=== PATIENT | male | born 1970 | race Caucasian/White ===

== ENCOUNTER 2025-09-13 11:40 | Inpatient (IN) | payer BC ==
[~2025-09-13] VITALS: Ht 172.7 cm; Wt 108.3 kg
--- NOTE | 2025-09-13 12:09 | Physician Documentation ---
History of Present Illness ~ General Chief Complaint: Abnormal Lab(s) Stated Complaint: ABNORMAL LABS Time Seen by MD: 12:17 History of Present Illness Initial Comments The patient is a very pleasant 54-year-old gentleman that presents to the emergency department for evaluation of hypertension and abnormal labs. Patient reports that he was seen by his primary care provider couple of weeks ago the primary care provider ordered laboratory diagnostics on the . Patient presented on the and had the labs done. Laboratory sent the patient the results but they have not been reviewed by the patient's primary care provider as they have been out of the office sick. Patient reports that there are several abnormalities that he is concerned about. Patient reports that he has hypothyroidism at baseline and takes Synthroid currently patient also takes antihypertensives. He reports that he was recently switched to Norvasc from his previous medication. Patient reports that he takes Norvasc 5 mg but it is samy rly not covering his hypertension as he is greater than 200 here in the triage room. Patient denies any other symptoms other than persistent shortness of breath with exertion and orthopnea. Patient denies any chest pain chest pressure radiating chest pain headache vision changes fever chills nausea vomiting or diarrhea at this time. he is taking levothyroxine 25 mcg once daily, he c/o severe constipation, increased weight, cold intolerane and difficulty in getting up from chair for the past 4 months, along with exertional dyspnea Medication Reconciliation Allergies: Coded Allergies: No Known Allergies (Unverified , 09/13/25) Scheduled Amlodipine Besylate (Norvasc), 1 TAB PO DAILY, (Reported) Atorvastatin Calcium (Atorvastatin Calcium), 40 MG PO DAILY Bupropion Hcl (Wellbutrin), 1 TAB PO DAILY, (Reported) Chlorthalidone (Chlorthalidone), 1 TAB PO DAILY Gabapentin (Gabapentin), 1 CAP PO HS, (Reported) Glipizide (Glipizide Er), 1 TAB PO DAILY Levothyroxine Sodium (Levothyroxine Sodium), 2 TAB PO DAILY Lisinopril (Lisinopril), 2 TAB PO DAILY Gooding Carbonate (Gooding Carbonate), 3 CAP PO HS, (Reported) Discontinued Medications Gooding Carbonate (lithium carbonate tablet), 3 TAB PO DAILY, (Reported) Discontinued Reason: wrong med Propranolol Hcl (Propranolol Hcl), 2 TAB PO BID, (Reported) Discontinued Reason: wrong med Propranolol Hcl* (Inderal*), 1 TAB PO BID, (Reported) Past Medical History Other Past Medical History: HTN T2DM Hypothyroidism bipolar disorder Alcohol Use: Occasionally Drug Use: none Lives with: Alone Lives In: Home Review of Systems All Other Systems at this time: Reviewed and Negative Physical Exam Physical Exam Vital Signs: Temperature: 97.8, Source: Oral, Heart Rate: 94, Respiratory Rate: 18, BP: 202/124, Pulse Oximetry: 99, Weight: 108.300 Oxygen Flow Rate: 0 General Appearance: alert, no apparent distress General Appearance pleasant, and obese Respiratory: lungs clear, normal breath sounds Chest: no accessory muscle use Cardiovascular: regular rate, rhythm Cardiovascular S1, S2 heard Neurologic: oriented x4 Motor / Sensory: no motor deficit, no sensory deficit 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 Progress Results/Orders Results/Orders Orders - VIKTORIA GIVENS MD Chest,Single View (09/13/25 12:15) Monitor (09/13/25 12:15) Saline Lock (09/13/25 12:15) Oxygen (09/13/25 12:15) Hs Troponin I W Calculations (09/13/25 14:15) Hs Troponin I W Calculations (09/13/25 15:15) Completed Orders - VIKTORIA GIVENS MD Chest,Single View (09/13/25 12:15) Cbc/Diff (09/13/25 12:15) BMP (09/13/25 12:15) PBNP (09/13/25 12:15) Electrocardiogram (09/13/25 12:15) Hs Troponin I W Calculations (09/13/25 12:15) Free T4 (09/13/25 12:53) Hgb A1c (09/13/25 12:53) MG (09/13/25 12:53) Vital Signs 09/13/25 09/13/25 09/13/25 11:57 12:49 12:53 Temp 97.8 Pulse 94 76 Resp 18 14 B/P (MAP) 202/124 191/112 (138) Pulse Ox 99 96 O2 Flow Rate 0 0 Laboratory Tests Test 09/13/25 12:53 09/13/25 13:16 White Blood Count 8.0 Red Blood Count 4.46 L Hemoglobin 13.2 L Hematocrit 38.7 L Mean Corpuscular Volume 86.7 Mean Corpuscular Hemoglobin 29.6 Mean Corpuscular Hemoglobin Concent 34.1 Red Cell Distribution Width 14.1 Platelet Count 304 Mean Platelet Volume 7.8 Neutrophils (%) (Auto) 69.9 Lymphocytes (%) (Auto) 19.3 L Monocytes (%) (Auto) 5.8 Eosinophils (%) (Auto) 3.1 Basophils (%) (Auto) 1.9 H Neutrophils # (Auto) 5.6 Lymphocytes # (Auto) 1.5 Monocytes # (Auto) 0.5 Eosinophils # (Auto) 0.3 Basophils # (Auto) 0.2 CBC Comment Sodium Level 136 Potassium Level 4.0 Chloride Level 101 Carbon Dioxide Level 26.1 Anion Gap 9 Blood Urea Nitrogen 15 Creatinine 1.50 H Estimated GFR/1.73 m2 49 BUN/Creatinine Ratio 10.0 Glucose Level 248 H Hemoglobin A1c 7.8 H Calcium Level 9.7 Magnesium Level 2.1 Total Creatine Kinase 245 Troponin I High Sensitivity 18 Pro-B-Type Natriuretic Peptide 228 H Albumin 4.2 Thyroid Stimulating Hormone (TSH) 157.75 H Free Thyroxine < 0.20 L Chemistry Comments Urine Specimen Description Non-specified Urine Color Yellow Urine Clarity Slightly cloudy Urine pH 6.0 Urine Specific [place] 1.025 Urine Protein Trace Urine Glucose (UA) 100 H Urine Ketones Negative Urine Occult Blood Trace-intact Urine Nitrite Negative Urine Bilirubin Negative Urine Urobilinogen 0.2 Urine Leukocyte Esterase Negative Urine RBC 0-2 Urine WBC 0-4 Urine Squamous Epithelial Cells Few Urine Calcium Oxalate Crystals 1+ Urine Bacteria Few Urine Hyaline Casts 0-3 Urine Mucus None seen Urine Culture Indicated Not ind Volume Urine Centrifuged 10 ml Urine Comment Medical Decision Making Additional information obtaine: old records Findings 54 year old male with HTN, Hypothyroidism, obesity, T2DM, bipolar disorder on lithium came to the ER after he was found to have abn labs TSH >150, with decreased T3 and T4 Ca-10.4 and cr- 1.43 patient doesnt have signs of adrenal insufficiency will do CK to look for myopathy EKG- sinus rythm, 76/min,no ST-T changes will give iv levothyroxine 100 mcg once patient needs to be admitted for eval of causes of uncontrolled hypothyroidism, could be 2/2 lithium interactions, sub- therapeutic dosing Differential Diagnosis uncontrolled hypothyroidism Departure Time of Disposition: 14:06 Admitted to Inpatient Unit: yes, to hospitalist (sign out given to Dr. Tubbs team) Impression: Primary Impression: Hypothyroidism Condition: Guarded Referrals: NO PRIMARY CARE PROVIDER (PCP) Prescriptions Chlorthalidone (Chlorthalidone) 25 Mg Tablet 1 TAB PO DAILY for 30 Days, #30 TAB 0 Refills Prov: MATICHUCKCORBIN [facility] 09/14/25 Lisinopril (Lisinopril) 20 Mg Tablet 2 TAB PO DAILY for 30 Days, #60 TAB [facility]/14[facility]25 Atorvastatin Calcium (Atorvastatin Calcium) 20 Mg Tablet 40 MG PO DAILY for 30 Days, #30 TAB Prov: [facility] 09/14/25 Glipizide (Glipizide Er) 5 Mg Tab.er2.24 1 TAB PO DAILY for 30 Days, #30 TAB 0 Refills Prov: MATIALEKFREDDIE [facility] 09/14/25 Levothyroxine Sodium (Levothyroxine Sodium) 25 Mcg Tablet 2 TAB PO DAILY for 30 Days, #60 TAB [facility] 09/14/25 Additional Comment Seen with PA/AUTOMOTIVE REFINISH TECHNICIAN The patient was seen with the medical records field technician. The patient presents with symptoms consistent with significant hypothyroidism. The patient is chart has been reviewed I have reviewed resident's note and with the residents assessment and plan. The patient has been independently examined. The patient will be admitted to the hospitalist service. Prior hospitalizations has been reviewed. The patient's pulse oximetry was interpreted as normal and adequate Signature Scribe Signature: . Attestation: findings, assessment, plan and dispo d/w WINIFRED Martins MDP Sep 13, 2025 12:09 FINESSE MENG, RES Sep 13, 2025 13:36 VIKTORIA GIVENS MD Sep 16, 2025 08:17
--- NOTE | 2025-09-13 12:19 | ELECTROCARDIOGRAPH REPORT ---
[facility] Test Date: 2025-09-13 Test Time: 12:15:47 Pat Name: ANITA TYLER Department: EMERGENCY ROOM Room: Gender: M Facing Baster Jumpbasting: OLENA : 1970 Requested By: VIKTORIA GIVENS Order Number: [id number] Reading MD: Measurements Intervals Lyman Rate: 76 P: 35 SD: 158 QRS: 15 QRSD: 97 T: 197 QT: 366 QTc: 412 Interpretive Statements Sinus rhythm Borderline repolarization abnormality Baseline wander in lead(s) V2 Please click the below link to view image of tracing.
--- NOTE | 2025-09-13 12:41 | RADIOLOGY REPORT ---
EXAM: DI CHEST,SINGLE VIEW HISTORY: CP COMPARISON: None TECHNIQUE: Portable upright AP view of the chest was performed. FINDINGS: No pneumothorax, consolidative infiltrates, or pulmonary edema. The heart is not enlarged. There is an old left mid clavicular fracture. IMPRESSION: No acute intrathoracic process.
[2025-09-13 13:05] LABS: MEAN PLATELET VOLUME 7.8 FL (7.4-10.4); RED CELL DISTRIBUTION WIDTH 14.1 % (11.5-14.5)
[2025-09-13 13:32] LABS: CREATININE 1.50 MG/DL (0.60-1.10); PRO BRAIN NATRIURETIC PEPTIDE 228 PG/ML (0-125); TOTAL CARBON DIOXIDE 26.1 MMOL/L (24-32); eCRCL 54 ML/MIN; eGFR 49 ML/MIN
[2025-09-13] MEDS: LEVOTHYROXINE SODIUM 100 MCG/5 ML injection IV ONE (13:45)
[2025-09-13] MEDS ORDERED: potassium Cl 40MEQ/1/2NS 520ml 520 ML IV PRN (14:15)
[2025-09-13] MEDS ORDERED: magnesium sulf-water 4G/100mL 100 ML IV PRN (14:15)
[2025-09-13] MEDS ORDERED: potassium Cl 20 mEq SR tablet PO PRN ×2 (14:15)
[2025-09-13] MEDS ORDERED: magnesium Cl slow-release 64mg tablet PO PRN (14:15)
[2025-09-13] MEDS ORDERED: ondansetron/PF 4mg/2ml inj IV PRN (14:15)
[2025-09-13] MEDS ORDERED: magnesium hydroxide 30ml (MOM) UD suspension PO PRN (14:15)
[2025-09-13] MEDS ORDERED: bisacodyl 10mg suppository rectal RC PRN (14:15)
[2025-09-13] MEDS ORDERED: mag hydrox/Alum hydrox/simeth 30ml oral suspension PO PRN (14:15)
[2025-09-13] MEDS ORDERED: magnesium sulf-water 2g/50mL 50 ML IV PRN (14:15)
[2025-09-13] MEDS ORDERED: HYDROmorphone/PF 0.2 MG/ML SYRINGE IV PRN (14:15)
[2025-09-13] MEDS: levoTHYROXINE 100mcg tablet PO SCH (14:55)
[2025-09-13] MEDS ORDERED: LITH300T3 PO (15:03)
[2025-09-13] MEDS ORDERED: PROP20TA6 PO (15:03)
[2025-09-13] MEDS ORDERED: LEVO25TA7 PO (15:03)
[2025-09-13] MEDS ORDERED: BUPR100T13 PO (15:03)
[2025-09-13] MEDS ORDERED: GABA-530 PO (15:03)
[2025-09-13] MEDS ORDERED: AMLO5TAB5 PO (15:04)
[2025-09-13 15:32] LABS: LEUKOCYTE ESTERASE ,URINE NEGATIVE (Neg); NITRITES, URINE NEGATIVE (Neg); OCCULT BLOOD,URINE TRACE-INTACT (Neg)
[2025-09-13 15:35] LABS: UA COLLECTION TYPE NON-SPECIFIED
[2025-09-13 15:38] LABS: CAL OXALATE CRYSTALS 1+ /HPF (NEGATIVE); HYALINE CASTS 0-3 /LPF (NEGATIVE); MUCUS STRANDS NONE SEEN /LPF (Neg); SQUAMOUS EPITHELIAL CELL,UR FEW /LPF (FEW)
[2025-09-13] MEDS ORDERED: LITH300C PO (16:49)
[2025-09-13] MEDS ORDERED: PROP40TA72 PO (16:50)
[2025-09-13 17:18] LABS: APTT 26 SECONDS (22-32); INR 1.0 INR
[2025-09-13] MEDS ORDERED: dextrose 50%-water 50ml dispensing syringe IV PRN ×2 (18:25)
[2025-09-13] MEDS ORDERED: DEXTROSE 15 GM of carb/4 tabs (each vial/BOTTLE has 4 tablets) PO PRN ×2 (18:25)
[2025-09-13] MEDS ORDERED: glucagon, human recombinant 1mg kit SUBCUT PRN (18:25)
--- NOTE | 2025-09-13 18:30 | HISTORY AND PHYSICAL-Residence ---
History & Physical Providers to CC Resident Creating Document: ANAID DOSS, RES ~ History of Present Illness Reason for Admit\Complaint: Referred by PCP History of Present Illness This is a 54-year-old male with a history of type 2 diabetes mellitus, bipolar disorder, anxiety, depression presents to the ER after being referred by his PCP for abnormally high TSH. Patient endorses that his symptoms started four months ago which included severe constipation, hot flashes, burning pain in his muscles, dry mouth, insomnia, occasional chest pain and shortness of breath with exertion. His symptoms worsened one month ago and went to the ER where EKG and chest x-ray were normal and was discharged home. He also states that he gained 30 lb in the last four months. He later followed up with PCP who ordered some lab work and a mentioned that the TSH was very high redirected him to go to the ER. Patient takes multiple medications for anxiety, depression including metoprolol, Wellbutrin and lithium for bipolar disorder. Patient has type 2 diabetes but does not take any medication and follows dietary modification. Allergies: Coded Allergies: No Known Allergies (Unverified , 09/13/25) Home Medications Home Medications Active Reported Inderal* (Propranolol HCl) 40 Mg Tablet 1 Tab PO BID [place] Carbonate 300 Mg Capsule 3 Cap PO HS 30 Days Norvasc (Amlodipine Besylate) 5 Mg Tablet 1 Tab PO DAILY 30 Days Wellbutrin (Bupropion Hcl) 100 Mg Tablet 1 Tab PO DAILY 30 Days Levothyroxine Sodium 25 Mcg Tablet 1 Tab PO DAILY Gabapentin 100 Mg Capsule 1 Cap PO HS Past Medical History Past Medical History Type 2 diabetes mellitus, bipolar, anxiety, depression Past Surgical History Surgical History Comment Left knee surgery Past Social History Social History Comment Smokes about half pack per day for the last 40 years, denies any alcohol or drug use Alcohol Use: Occasionally Drug Use: None Lives with: Alone Lives In: Home ROS All Other Systems: Reviewed and Negative ROS Constitutional: Positive for Weight gain No fever, chills, dizziness, weakness Eyes: No pain, erythema, discharge, blurring of vision ENT: No sore throat, epistaxis, tinnitus Cardiovascular: Positive for chest pain. No palpitations, syncope, lower extremity edema, paroxysmal nocturnal dyspnea Respiratory: Positive for shortness of breath. No hemoptysis Gastrointestinal: Positive for constipation Normal appetite. No nausea, vomiting, diarrhea, hematemesis, abdominal pain, bloating, melena or fresh blood Genitourinary: No frequency, urgency, nocturia, hematuria or dysuria Musculoskeletal: Myalgias positive No arthralgias Integumentary: Dry skin. No change in skin, hair, nails. No swelling, bruising, abrasions Neurologic: No headache, neck pain, numbness or tingling of the extremities, weakness Psychiatric: No delusions, depression, loss of interest in normal activity or change in sleep pattern, hallucinations, suicidal ideations Endocrine: Positive for fatigue, weakness, change in appetite, heat or cold intolerance, sweating, dry skin Hematological: No bleeding, petechiae, bruising Allergies: No asthma or urticaria Exam Vitals: Vital Signs Date Time Temp Pulse Resp B/P (MAP) Pulse Ox O2 Delivery O2 Flow Rate FiO2 09/13/25 16:35 96 16 170/110 (130) 99 0 09/13/25 11:57 97.8 General: General: Awake and Alert, no acute distress. HEENT: Conjunctiva pink, Sclera clear, Mucus Membranes moist Neck: Supple without masses and tenderness. Resp: Unlabored. Equal breath sounds bilaterally. Heart: Regular rhythm, normal S1 and S2, no rub, murmur or gallop, muffled heart sounds. Abdomen: Soft and non tender no organomegaly. Normal bowel sounds x4 quadrant normoactive. No guarding or rigidity. Extremities: Normal ROM, no swelling, nontender. No cyanosis,clubbing or edema. BANK CLERK: No gross motor or sensory abnormalities. 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 Warm and Dry. Diagnostic Data Last Recorded Lab Results: 09/13/25 1253 09/13/25 1253 Diagnostic Data: Laboratory Tests Test 09/13/25 16:21 Prothrombin Time 10.3 SECONDS (9.0-12.0) INR International Normalized Ratio 1.0 INR Activated Partial Thromboplast Time 26 SECONDS (22-32) Coagulation Comments Advance Care Planning Advanced Care plannin - 30 Minutes (I spent a total of 17 minutes on reviewing various resuscitative measures/ ACP with the patient at the time of admission. 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 However patient does not have any acute symptoms Patient takes 25 mcg of levothyroxine daily (subtherapeutic dose) Patient received one dose of IV levothyroxine 100 mcg in the ER. Started on p.o. levothyroxine 100 mcg daily scheduled. No signs of adrenal crisis as of now including bradycardia, hypotension, hypoglycemia, not received any steroids in ER. Follow up with the ACTH and a.m. cortisol. CK level is 245 WNL EKG shows no signs of bradycardia. Hypertensive urgency Blood pressure at presentation was 200/124 mmHg. Restarted home medication amlodipine 5 mg p.o. daily scheduled and propranolol 40 mg p.o. b.i.d. which he takes for anxiety Severe constipation secondary to hypothyroidism Started on rectal suppository daily p.r.n., MiraLax daily scheduled, docusate b.i.d. scheduled, milk of Mag PRN. Monitor daily bowel movements MIRA secondary to renal tubular stasis Creatinine 1.5, unknown baseline. Started on IV fluids NS at the rate of 100 mL/hour Type 2 diabetes mellitus A1c 7.8. Blood sugar high at 248. Started on hyperglycemia protocol with 20 units insulin and medium dose supplemental insulin History of bipolar disorder Serum lithium level 0.3 (below therapeutic range). Restarted home medication lithium daily scheduled. [place] less likely to be causing severe hypothyroidism. Mild hypercalcemia Calcium 9.7, continue monitoring Code Status: Full code DVT Prophylaxis: Heparin Analgesia/Sedation: Tylenol PRN Lines/Tubes: PIV Gi Prophylaxis: None Nutrition: Carb controlled diet PT: Yes Prognosis: Guarded Disposition: Admit to surgical floor. Anaid Graham MD Internal Medicine Resident PGY-2 Date of Service: Sep 13, 2025 Billing Provider: ALEXANDER THOMPSON MD Common Visit Codes: 61710-[id number] INP/OBS CARE (HIGH) Secondary Visit Codes: [id number] CARE PLAN 30 MINUTES ANAID DOSS, RES Sep 13, 2025 18:30 ALEXANDER THOMPSON MD Sep 15, 2025 06:47
[2025-09-13] MEDS: K and/or MAG REPLACEMENT MC SCH (20:00)
[2025-09-13] MEDS: polyethylene glycol 3350 17gm powd pack PO SCH (20:27)
[2025-09-13] MEDS: normal saline 1000ml 1,000 ML IV SCH (20:27)
[2025-09-13] MEDS: propranolol 10mg tablet PO SCH (20:29)
[2025-09-13] MEDS: docusate sod 100mg capsule PO SCH (20:31)
[2025-09-13] MEDS: heparin, porcine 5000 units/ml vial SQ SCH (20:32)
[2025-09-13] MEDS: insulin glargine (Lantus) pen - multi-dose SQ SCH (20:36)
[2025-09-13] MEDS: INSULIN LISPRO 100 UNIT/ML INSULN.PEN MULTI-DOSE SQ SCH (20:38)
[2025-09-13 22:15] VITALS: BP 161/93; PULSE 57; RESP 16; TEMP 98; O2SAT 98
[2025-09-14] MEDS: HYDROcodone/acetaminophen 5mg/325mg tablet PO PRN (00:30)
[2025-09-14 02:00] VITALS: BP 159/62; PULSE 58; RESP 16; TEMP 96.5; O2SAT 98
[2025-09-14 06:00] VITALS: BP 160/93; PULSE 62; RESP 16; TEMP 97.3; O2SAT 95
[2025-09-14] MEDS: levoTHYROXINE 75mcg tablet PO ONE (10:26)
[2025-09-14 11:00] VITALS: BP 165/97; PULSE 51; RESP 15; TEMP 97.9; O2SAT 99
[2025-09-14 11:37] LABS: MEAN PLATELET VOLUME 7.7 FL (7.4-10.4); RED CELL DISTRIBUTION WIDTH 14.4 % (11.5-14.5)
--- NOTE | 2025-09-14 11:53 | RADIOLOGY REPORT ---
CT brain without contrast CLINICAL INDICATION: left hand numbness FINDINGS: The study was performed in a multidetector scanner. This study performed taking axial images from the skull base up to the vertex. Both brain and bone windows are photographed. Dose lowering techniques have been used including automated exposure control and adjustment of mA and/or KV according to patient size. Normal and symmetrical shape and density of brain parenchyma above and below the tentorium is seen. There is no mass, midline shift or hydrocephalus. No intra/extra-axial collections demonstrated. There is no intracranial hemorrhage. The calvarium is intact. IMPRESSION: 1. Normal brain and skull. Computed Tomographic Radiation Dosimetry Report: Total CTDI vol = 63 mGy Total DLP = 1186 mGy-cm All CT scans at this medical facility are performed using dose modulation techniques as appropriate to a performed exam including the following: Automated exposure control was utilized; adjustment of the MA and/or KvP according to patient size; and use of iterative reconstruction technique.
[2025-09-14 11:55] LABS: CHOL/HDL RATIO 6.5 (0.00-4.99); CREATININE 1.27 MG/DL (0.60-1.10); LDL CHOLESTEROL 172 MG/DL (50-100); TOTAL CARBON DIOXIDE 29.6 MMOL/L (24-32); eCRCL 64 ML/MIN; eGFR 59 ML/MIN
[2025-09-14] MEDS ORDERED: GLIP-297 PO (13:22)
[2025-09-14] MEDS ORDERED: ATOR20TA66 PO (13:22)
[2025-09-14] MEDS ORDERED: LEVO25TA7 PO (13:22)
[2025-09-14] MEDS ORDERED: CHLO25TA10 PO (13:36)
[2025-09-14] MEDS ORDERED: LISI20TA28 PO (13:36)
[2025-09-14 13:38] VITALS: BP 169/94; PULSE 54
--- NOTE | 2025-09-14 14:28 | DISCHARGE SUMMARY-Residence ---
Discharge Summary Providers to CC Resident Creating Document: GUNNAR MORALES RES ~ Discharge Summary Admission Diagnosis: severe hypothyroidism Admission Diagnosis Comment: Severe hypothyroidism, not in myxedema coma Myopathy Hypertensive urgency Severe constipation secondary to hypothyroidism MIRA secondary to renal tubular stasis Type 2 diabetes mellitus History of bipolar disorder Mild hypercalcemia Hospital Course DATE OF ADMISSION: 09/13/25 DATE OF DISCHARGE: 09/14/25 Imaging- Chest x-ray No acute intrathoracic process Head CT- Normal brain and skull. Discharge Diagnosis\Comment: Severe hypothyroidism, not in myxedema coma Myopathy Hypertensive urgency resolved Severe constipation secondary to hypothyroidism MIRA secondary to renal tubular stasis Type 2 diabetes mellitus History of bipolar disorder Mild hypercalcemia Operations\Procedures: None Consultants: None Complications: None Condition on DC: Stable New Medications: Atorvastatin Calcium (Atorvastatin Calcium) 20 Mg Tablet 40 MG PO DAILY for 30 Days, #30 TAB Chlorthalidone (Chlorthalidone) 25 Mg Tablet 1 TAB PO DAILY for 30 Days, #30 TAB 0 Refills Glipizide (Glipizide Er) 5 Mg Tab.er2.24 1 TAB PO DAILY for 30 Days, #30 TAB 0 Refills Lisinopril (Lisinopril) 20 Mg Tablet 2 TAB PO DAILY for 30 Days, #60 TAB Changed Medications: Levothyroxine Sodium (Levothyroxine Sodium) 25 Mcg Tablet 2 TAB PO DAILY for 30 Days, #60 TAB (Changed from: 1 TAB) Continued Medications: Amlodipine Besylate (Norvasc) 5 Mg Tablet 1 TAB PO DAILY for 30 Days, #30 TAB 0 Refills Bupropion Hcl (Wellbutrin) 100 Mg Tablet 1 TAB PO DAILY for 30 Days, #60 TAB 0 Refills Gabapentin (Gabapentin) 100 Mg Capsule 1 CAP PO HS [place] Carbonate ([place] Carbonate) 300 Mg Capsule 3 CAP PO HS for 30 Days, #60 CAP 0 Refills Discontinued Medications: Propranolol Hcl* (Inderal*) 40 Mg Tablet 1 TAB PO BID, TAB Discharge Summary: This is a 54-year-old male with a history of type 2 diabetes mellitus, bipolar disorder, anxiety, depression presents to the ER after being referred by his PCP for abnormally high TSH. Patient endorses that his symptoms started four months ago which included severe constipation, hot flashes, burning pain in his muscles, dry mouth, insomnia, occasional chest pain and shortness of breath with exertion. His symptoms worsened one month ago and went to the ER where EKG and chest x-ray were normal and was discharged home. He also states that he gained 30 lb in the last four months. He later followed up with PCP who ordered some lab work and a mentioned that the TSH was very high redirected him to go to the ER. Patient takes multiple medications for anxiety, depression including metoprolol, Wellbutrin and lithium for bipolar disorder. Patient has type 2 diabetes but does not take any medication and follows dietary modification. Course during the hospital stay- Patient's TSH was greater than 150 with severely low T4. However patient did not any acute symptoms. The above lab values were due to medication noncompliance by the patient. Patient was not taking his levothyroxine regularly on a daily basis. However during the course of his stay in the hospital, his condition improved significantly, way earlier than expected he did not report any other complaints. Patient's blood pressure was controlled with antihypertensive medications. And patient was stable at the time of discharge. Vital Signs Date Time Temp Pulse Resp B/P (MAP) Pulse Ox O2 Delivery O2 Flow Rate FiO2 09/14/25 14:04 89 09/14/25 13:38 169/94 (119) 09/14/25 11:00 97.9 15 99 09/14/25 08:00 Room Air 09/13/25 21:12 0 Laboratory Tests Test 09/13/25 12:53 09/13/25 13:16 09/13/25 16:21 09/13/25 20:34 White Blood Count 8.0 X10'3 Red Blood Count 4.46 X10'6 Hemoglobin 13.2 g/dl Hematocrit 38.7 % Mean Corpuscular Volume 86.7 FL Mean Corpuscular Hemoglobin 29.6 PG Mean Corpuscular Hemoglobin Concent 34.1 g/dL Red Cell Distribution Width 14.1 % Platelet Count 304 X10'3 Mean Platelet Volume 7.8 FL Neutrophils (%) (Auto) 69.9 % Lymphocytes (%) (Auto) 19.3 % Monocytes (%) (Auto) 5.8 % Eosinophils (%) (Auto) 3.1 % Basophils (%) (Auto) 1.9 % Neutrophils # (Auto) 5.6 X10'3 Lymphocytes # (Auto) 1.5 X10'3 Monocytes # (Auto) 0.5 X10'3 Eosinophils # (Auto) 0.3 X10'3 Basophils # (Auto) 0.2 X10'3 CBC Comment Sodium Level 136 MMOL/L Potassium Level 4.0 MMOL/L Chloride Level 101 MMOL/L Carbon Dioxide Level 26.1 MMOL/L Anion Gap 9 Blood Urea Nitrogen 15 MG/DL Creatinine 1.50 MG/DL Estimated GFR/1.73 m2 49 ML/MIN BUN/Creatinine Ratio 10.0 Glucose Level 248 MG/DL Hemoglobin A1c 7.8 % Calcium Level 9.7 MG/DL Magnesium Level 2.1 MG/DL Total Creatine Kinase 245 U/L Troponin I High Sensitivity 18 ng/L Pro-B-Type Natriuretic Peptide 228 PG/ML Albumin 4.2 G/DL Thyroid Stimulating Hormone (TSH) 157.75 ulU/ml Free Thyroxine < 0.20 NG/DL Chemistry Comments Urine Specimen Description Non-specified Urine Color Yellow Urine Clarity Slightly cloudy Urine pH 6.0 Urine Specific [place] 1.025 Urine Protein Trace mg/dl Urine Glucose (UA) 100 mg/dl Urine Ketones Negative mg/dl Urine Occult Blood Trace-intact Urine Nitrite Negative Urine Bilirubin Negative Urine Urobilinogen 0.2 E.U/dL Urine Leukocyte Esterase Negative Urine RBC 0-2 /HPF Urine WBC 0-4 /HPF Urine Squamous Epithelial Cells Few /LPF Urine Calcium Oxalate Crystals 1+ /HPF Urine Bacteria Few /HPF Urine Hyaline Casts 0-3 /LPF Urine Mucus None seen /LPF Urine Culture Indicated Not ind Volume Urine Centrifuged 10 ml Urine Comment Prothrombin Time 10.3 SECONDS INR International Normalized Ratio 1.0 INR Activated Partial Thromboplast Time 26 SECONDS Coagulation Comments [place] Level 0.3 MMOL/L Glucometer 197 mg/dl Test 09/14/25 07:21 09/14/25 11:16 09/14/25 12:14 Glucometer 166 mg/dl 194 mg/dl White Blood Count 6.9 X10'3 Red Blood Count 4.37 X10'6 Hemoglobin 12.6 g/dl Hematocrit 38.1 % Mean Corpuscular Volume 87.2 FL Mean Corpuscular Hemoglobin 28.8 PG Mean Corpuscular Hemoglobin Concent 33.1 g/dL Red Cell Distribution Width 14.4 % Platelet Count 294 X10'3 Mean Platelet Volume 7.7 FL Neutrophils (%) (Auto) 61.8 % Lymphocytes (%) (Auto) 26.1 % Monocytes (%) (Auto) 6.2 % Eosinophils (%) (Auto) 4.5 % Basophils (%) (Auto) 1.4 % Neutrophils # (Auto) 4.3 X10'3 Lymphocytes # (Auto) 1.8 X10'3 Monocytes # (Auto) 0.4 X10'3 Eosinophils # (Auto) 0.3 X10'3 Basophils # (Auto) 0.1 X10'3 CBC Comment Sodium Level 138 MMOL/L Potassium Level 4.1 MMOL/L Chloride Level 105 MMOL/L Carbon Dioxide Level 29.6 MMOL/L Anion Gap 3 Blood Urea Nitrogen 15 MG/DL Creatinine 1.27 MG/DL Estimated GFR/1.73 m2 59 ML/MIN BUN/Creatinine Ratio 11.8 Glucose Level 198 MG/DL Calcium Level 9.0 MG/DL Magnesium Level 2.2 MG/DL Total Bilirubin 0.6 MG/DL Aspartate Amino Transf (AST/SGOT) 17 U/L Alanine Aminotransferase (ALT/SGPT) 21 U/L Alkaline Phosphatase 75 IU/L Total Protein 7.2 G/DL Albumin 3.7 G/DL Globulin 3.5 G/DL Albumin/Globulin Ratio 1.1 Triglycerides Level 283 MG/DL Cholesterol Level 247 MG/DL LDL Cholesterol 172 MG/DL HDL Cholesterol 38 MG/DL Cholesterol/HDL Ratio 6.5 Chemistry Comments Physical examination at the time discharge- General: Awake and Alert, no acute distress. HEENT: Conjunctiva pink, Sclera clear, Mucus Membranes moist Neck: Supple without masses and tenderness. Resp: Unlabored. Equal breath sounds bilaterally. Heart: Regular rhythm, normal S1 and S2, no rub, murmur or gallop, muffled heart sounds. Abdomen: Soft and non tender no organomegaly. Normal bowel sounds x4 quadrant normoactive. No guarding or rigidity. Extremities: Normal ROM, no swelling, nontender. No cyanosis,clubbing or edema. MANAGER OF OPERATIONS: No gross motor or sensory abnormalities. Skin: Warm and Dry. Discharge medications- New Medications: Atorvastatin Calcium 20 Mg Tablet Chlorthalidone 25 Mg Tablet Glipizide (Glipizide Er) 5 Mg Tab.er2.24 Lisinopril 20 Mg Tablet Changed Medications: Levothyroxine Sodium 25 Mcg Tablet Continued Medications: Amlodipine Besylate (Norvasc) 5 Mg Tablet Bupropion Hcl (Wellbutrin) 100 Mg Tablet Gabapentin 100 Mg Capsule [place] Carbonate 300 Mg Capsule Discontinued Medications: Propranolol Hcl* (Inderal*) 40 Mg Tablet Additional instructions by the doctor at the time of discharge- Please take your levothyroxine 50mcg daily in the morning on empty stomach, 30 min before food. Follow up with your PCP and get your blood work checked in 6 weeks. Be compliant with your thyroid medication. Donot skip doses. We have stopped your medication proprananol in view of low heart rate. Follow up with your PCP regarding the same. We have added new medication for your diabetes glipizide. Please continue to take lisinopril 40 mg once daily, chlorthalidone 25 mg once daily and amlodipine 5 mg once daily for high blood pressure. Please check blood pressure twice daily and discuss the readings and medications with your PCP. Please hold amlodipine, chlorthalidone and lisinopril if systolic blood pressure less than 100 mmHg. *Problems/Diagnosis: (1) Hypothyroidism Status: Acute Total Time Spent on D/C: > 30 Minutes Date of Service: Sep 14, 2025 Billing Provider: ALEXANDER THOMPSON MD Common Visit Codes: 51346-MLS/OBS DISCH DAY >30min GUNNAR MORALES, RES Sep 14, 2025 14:14 ALEXANDER THOMPSON MD Sep 15, 2025 06:48
[2025-09-14 15:24] VITALS: BP 154/88; PULSE 53
[2025-09-15] MEDS ORDERED: levoTHYROXINE 175mcg tablet PO SCH (07:00)
[2025-09-16 08:24] LABS: ACTH, PLASMA 16.0 pg/mL (7.2-63.3); TRIIODOTHYRONINE (T3) 24.0 ng/dL (71-180)
== END 2025-09-14 16:36 | disposition home or self-care (01) | DRG 643 ==
LOC: ER 11:42 → ED HOLD 14:28 → PCU 3S 22:30
PROVIDERS: ADMIT Internal Medicine; ATTEND Internal Medicine
DX: E03.9 Hypothyroidism, unspecified (principal); N17.0 Acute kidney failure with tubular necrosis; G72.9 Myopathy, unspecified; I16.0 Hypertensive urgency; E11.9 Type 2 diabetes mellitus without complications; F31.9 Bipolar disorder, unspecified; E83.52 Hypercalcemia; K59.00 Constipation, unspecified; F41.9 Anxiety disorder, unspecified; F17.210 Nicotine dependence, cigarettes, uncomplicated; I10 Essential (primary) hypertension; G47.00 Insomnia, unspecified; Z91.148 Patient's other noncompliance with medication regimen for other reason; Z79.890 Hormone replacement therapy
CPT/HCPCS: 36415; 70450; 71045; 80048; 80053; 80061; 80178; 81001; 82024; 82550; 82948; 83036; 83735; 83880; 84439; 84443; 84480; 84484; 85025; 85610; 85730; 87081; 93005; 96372; 99285; A4615; G0378; J1644; J1815; J7030